=== PATIENT | male | born 1970 | race African-American/Black ===

== ENCOUNTER 2019-06-11 11:51 | Emergency (ER) | payer MEDICAID ==
[~2019-06-11] VITALS: Ht 195.6 cm; Wt 100.0 kg
[2019-06-11] MEDS ORDERED: ACETAMINOPHEN 325MG TABLET PO ONE (12:45)
[2019-06-11 14:28] VITALS: BP 130/80
== END 2019-06-11 14:29 | disposition home or self-care (01) ==
LOC: ER 12:23
DX: J11.1 Influenza due to unidentified influenza virus with other respiratory manifestations (principal)
CPT/HCPCS: 87804; 93005; 99284